=== PATIENT | male | born 1960 | race Two or more races ===

== ENCOUNTER 2019-12-28 07:28 | Emergency (ER) | payer SELFPAY ==
[~2019-12-28] VITALS: Ht 170.2 cm; Wt 72.6 kg
[2019-12-28 08:20] LABS: Basophils # (auto) 0.1 10 ^3/uL (0-0.2); Eosinophils # (auto) 0.1 10 ^3/uL (0-0.8); Hematocrit 47.8 % (41.0-53.0); Lymphocytes # (auto) 1.2 10 ^3/uL (0.4-5.4); Lymphocytes % (auto) 24.9 % (10.0-50.0); Mean Corpuscular Hemoglobin 33.5 pg (28.0-32.0); Mean Corpuscular Hgb Conc. 33.5 g/dL (32.0-36.0); Mean Corpuscular Volume 99.8 fL (80.0-100.0); Monocytes # (auto) 0.5 10 ^3/uL (0-1.3); Monocytes % (auto) 11.1 % (0.0-12.0); Neutrophils # (auto) 2.9 10 ^3/uL (1.6-8.6); Platelet Count (auto) 158 10^3/uL (140-450); Red Blood Cells 4.78 10^6/uL (4.5-5.90); Red Cell Distribution Width 14.5 % (11.8-14.3); White Blood Cell 4.8 10^3/uL (4.4-10.8)
[2019-12-28 08:37] LABS: Salicylate 4.3 mg/dL (2.8-20.0)
[2019-12-28 08:38] LABS: Albumin 3.8 g/dL (3.4-5.0); Calcium 8.5 mg/dL (8.5-10.1); Potassium 4.3 mmol/L (3.5-5.1)
[2019-12-28 08:40] LABS: Acetaminophen < 2.0 ug/mL (10-30)
[2019-12-28 08:44] LABS: BUN/Creatinine Ratio 9.7; Bilirubin, Total 0.3 mg/dL (0.2-1.0); Total Protein 7.5 g/dL (6.4-8.2)
[2019-12-28 09:45] LABS: Amphetamine Screen, Urine NEGATIVE (NEGATIVE); Barbiturate Scree,Urine NEGATIVE (NEGATIVE); Benzodiazephine Screen, Urine NEGATIVE (NEGATIVE); Cannabinoid Screen, Urine NEGATIVE (NEGATIVE); Cocaine Screen, Urine NEGATIVE (NEGATIVE); Opiate Scree,Urine NEGATIVE (NEGATIVE); Phencyclidine Screen, Urine NEGATIVE (NEGATIVE)
[2019-12-28] MEDS ORDERED: FOLIC ACID 1 MG, MULTIPLE VITAMIN 10 ML, MAGNESIUM SULF SDV 50% 8 MEQ, THIAMINE INJ 100... INJ SCH ×5 (12:00)
[2019-12-28] MEDS ORDERED: SODIUM CHLORIDE 0.9% 1,000 ML IV ONE (12:30)
[2019-12-28 14:55] VITALS: BP 115/68
== END 2019-12-28 15:08 | disposition home or self-care (01) ==
LOC: ER 07:28 → EDBD 07:28 → ER 15:08
DX: F10.129 Alcohol abuse with intoxication, unspecified (principal); R41.82 Altered mental status, unspecified; G92 Toxic encephalopathy; F12.10 Cannabis abuse, uncomplicated; Y90.8 Blood alcohol level of 240 mg/100 ml or more
CPT/HCPCS: 36415; 80053; 80307; 80320; 80329; 85025; 96361; 96365; 96366; 99284; J3411; J3475; J7030

== ENCOUNTER 2020-09-21 17:18 | Emergency (ER) | payer SELFPAY ==
[~2020-09-21] VITALS: Ht 170.2 cm; Wt 68.0 kg
[2020-09-21 17:20] VITALS: BP 137/90
== END 2020-09-22 00:31 | disposition home or self-care (01) ==
LOC: ER 17:18
DX: S90.851A Superficial foreign body, right foot, initial encounter (principal); S70.12XA Contusion of left thigh, initial encounter; R51.9 Headache, unspecified; F17.210 Nicotine dependence, cigarettes, uncomplicated; Y08.89XA Assault by other specified means, initial encounter; Y93.89 Activity, other specified; Y92.89 Other specified places as the place of occurrence of the external cause; Y99.8 Other external cause status
CPT/HCPCS: 70450; 71250; 72125; 73630; 74176